=== PATIENT | male | born 2000 | race Hispanic/Latino ===

== ENCOUNTER 2021-03-20 13:28 | Emergency (ER) | payer OTHER ==
[~2021-03-20] VITALS: Ht 180.3 cm; Wt 116.1 kg
== END 2021-03-20 14:06 | disposition home or self-care (01) ==
LOC: ER 13:32
DX: R05 Cough (principal); U07.1 COVID-19; J40 Bronchitis, not specified as acute or chronic
CPT/HCPCS: 99282